=== PATIENT | female | born 2000 | race Caucasian/White ===

== ENCOUNTER 2019-02-13 14:12 | Emergency (ER) | payer SELFPAY ==
[2019-02-13] MEDS ORDERED: ONDANSETRON 4 MG TAB.RAPDIS PO ONE (16:22)
[2019-02-13] MEDS ORDERED: IBUPROFEN 800 MG TABLET PO ONE (16:22)
--- NOTE | 2019-02-13 16:24 | ER Document Report ---
ED Medical Screen (RME) - General Chief Complaint: Abdominal Pain Stated Complaint: ABDOMINAL PAIN Time Seen by Provider: 02/13/19 16:09 Mode of Arrival: Ambulatory Information source: Patient Notes: Patient states that she started her menstrual cycle today and developed abdominal pain. Patient states that she has had a low abdominal pain, low back pain and nausea. Patient states she is also felt faint today. Patient denies any concerns about or STD. On physical exam patient is tender to pelvic area as well as epigastric area. I have greeted and performed a rapid initial assessment of this patient. A comprehensive ED assessment and evaluation of the patient, analysis of test results and completion of the medical decision making process will be conducted by additional ED providers. TRAVEL OUTSIDE OF THE [place] IN LAST 30 DAYS: No - Related Data Allergies/Adverse Reactions: No Known Allergies Allergy (Unverified 02/13/19 14:14) Physical Exam - Vital signs Vitals: Temp Pulse Resp BP Pulse Ox 98.7 F 69 18 120/64 98 02/13/19 14:16 02/13/19 14:16 02/13/19 14:16 02/13/19 14:16 02/13/19 14:16 - Abdominal Tenderness: Tender - epigastric, lower pelvic Course - Vital Signs Vital signs: Temp Pulse Resp BP Pulse Ox 98.9 F 72 18 113/63 98 02/13/19 15:50 02/13/19 15:50 02/13/19 15:50 02/13/19 15:50 02/13/19 15:50
[2019-02-13] MEDS ORDERED: KETOROLAC TROMETHAMINE 60 MG/2 ML SDV IM ONE (17:08)
[2019-02-13 17:12] LABS: ABSOLUTE BASOPHILS # (AUTO) 0.1 10^3/uL (0.0-0.2); ABSOLUTE EOSINOPHILS # (AUTO) 0.1 10^3/uL (0.0-0.6); ABSOLUTE LYMPHOCYTES (AUTO) 3.2 10^3/uL (0.5-4.7); ABSOLUTE MONOCYTES (AUTO) 0.8 10^3/uL (0.1-1.4); ABSOLUTE NEUT (AUTO) 9.3 10^3/uL (1.7-8.2); BASOPHILS % (AUTO) 0.7 % (0-2); EOSINOPHILS % (AUTO) 0.5 % (0-6); HEMATOCRIT 42.7 % (36.0-47.0); HEMOGLOBIN 14.3 g/dL (12.0-15.5); LYMPHOCYTES % (AUTO) 23.8 % (13-45); MEAN CORPUSCULAR HEMOGLOBIN 31.3 pg (27.0-33.4); MEAN CORPUSCULAR HGB CONC 33.5 g/dL (32.0-36.0); MEAN CORPUSCULAR VOLUME 93 fl (80-97); MONOCYTES % (AUTO) 6.1 % (3-13); PLATELET COUNT 260 10^3/uL (150-450); RED BLOOD COUNT 4.57 10^6/uL (3.72-5.28); RED CELL DISTRIBUTION WIDTH 13.1 % (11.5-14.0); SEGMENTED NEUTROPHILS % (AUTO) 68.9 % (42-78); TOTAL CELLS COUNTED % (AUTO) 100 %; WHITE BLOOD COUNT 13.5 10^3/uL (4.0-10.5)
--- NOTE | 2019-02-13 17:14 | ER Document Report ---
ED General - General Chief Complaint: Abdominal Pain Stated Complaint: ABDOMINAL PAIN Time Seen by Provider: 02/13/19 16:09 Primary Care Provider: [facility] [Provider Group] - Follow up as needed Mode of Arrival: Ambulatory TRAVEL OUTSIDE OF THE [place] IN LAST 30 DAYS: No - HPI Notes: Patient is a 18-year-old female with history of anxiety who presents complaining of beginning her menstrual cycle today and having intense cramping as well as some epigastric discomfort. Patient states that her lower pelvic cramping will radiate to her legs and it caused her to have nausea and vomiting x1. Patient states that when the pain was at maximal intensity she did feel somewhat faint, but did not have any syncopal episodes. Pt states that she normally has this type of pelvic pain with her menstrual cycles, but this one was more intense initially that normal. Patient states that the pain has not gotten to that point that it did earlier today. She is able to eat and drink, but does have a decreased p.o. intake. She is urinating normally and having normal bowel movements. Patient states that she may have a yeast infection, but denies any other discharge or odor. She does not want tested for any further STDs or STIs. She is declining any pelvic exam to be performed. Patient also states no chance of as she has a gf. Denies any headache, fever, neck pain, URI, sore throat, chest pain, palpitations, syncope, cough, shortness of breath, wheeze, dyspnea, diarrhea, urinary retention, dysuria, hematuria, or rash. - Related Data Allergies/Adverse Reactions: No Known Allergies Allergy (Unverified 02/13/19 14:14) Past Medical History - General Information source: Patient - Social History Smoking Status: Current Every Day Smoker Frequency of alcohol use: None Drug Abuse: None Family History: Reviewed & Not Pertinent Patient has suicidal ideation: No Patient has homicidal ideation: No Review of Systems - Review of Systems -: Yes All other systems reviewed and negative Physical Exam - Vital signs Vitals: Temp Pulse Resp BP Pulse Ox 98.7 F 69 18 120/64 98 02/13/19 14:16 02/13/19 14:16 02/13/19 14:16 02/13/19 14:16 02/13/19 14:16 - Notes Notes: PHYSICAL EXAMINATION: GENERAL: Well-appearing, well-nourished and in no acute distress. HEAD: Atraumatic, normocephalic. EYES: Pupils equal round and reactive to light, extraocular movements intact, sclera anicteric, conjunctiva are normal. ENT: Nares patent and without discharge. oropharynx clear without exudates. No tonsilar hypertrophy or erythema. Moist mucous membranes. NECK: Normal range of motion, supple without lymphadenopathy LUNGS: Breath sounds clear to auscultation bilaterally and equal. No wheezes rales or rhonchi. HEART: Regular rate and rhythm without murmurs, rubs, gallops. ABDOMEN: Soft, nondistended abdomen. No guarding, no rebound. Normal bowel sounds present. No CVA tenderness bilaterally. + mild central tenderness lower pelvic. No tenderness at [place]. Batista neg. + epigastric tenderness, mild. : declined Musculoskeletal: FROM to passive/active. Strength 5+/5. Extremities: No cyanosis, clubbing, or edema b/l. Peripheral pulses 2+. Capillary refill less than 3 seconds. NEUROLOGICAL: Normal speech, normal gait. Normal sensory, motor exams PSYCH: Normal mood, normal affect. SKIN: Warm, Dry, normal turgor, no rashes or lesions noted. Course - Re-evaluation Re-evalutation: 02/13/19 Patient is an afebrile, well-hydrated, 18-year-old female who presents with epigastric abdominal pain, suspect GERD versus gastritis, lower pelvic pain consistent with her menstrual cycles, otherwise unspecified. There is no tenderness at [place]. Batista negative. No bilateral pelvic tenderness. Vitals are acceptable without significant tachycardia, tachypnea, or hypoxia. PE is otherwise unremarkable. Patient is nontoxic-appearing is tolerating p.o. without difficulty. Labs are unremarkable aside from yeast infection. Patient declined pelvic exam. Diflucan given p.o. today. No further work-up warranted. GI cocktail along with other meds given today have resolved her symptoms and she is 'ready to go home.' Low suspicion/risk for acute appendicitis, bowel obstruction, acute cholecystitis, acute cholangitis, perforated diverticulitis, incarcerated hernia, pancreatitis, perforated ulcer, peritonitis, sepsis, pelvic inflammatory disease, ectopic , tubo-ovarian abscess, ovarian torsion, or other systemic emergent condition at this time. Patient is aware that her condition can change from initial presentation and she needs to monitor symptoms closely and seek medical attention if any acute changes. Conservative measures otherwise for symptoms. Recheck with your PCM/RECREATION THERAPY DIRECTOR in 2 to 3 days. Consider consult with a seed cleaner. Return to the ED with any worsening/concerning symptoms otherwise as reviewed in discharge. Patient is in agreement. - Vital Signs Vital signs: Temp Pulse Resp BP Pulse Ox 98.9 F 72 18 113/63 98 02/13/19 15:50 02/13/19 15:50 02/13/19 15:50 02/13/19 15:50 02/13/19 15:50 - Laboratory Result Diagrams: 02/13/19 17:00 02/13/19 17:00 Laboratory results interpreted by me: 02/13/19 02/13/19 17:00 17:55 WBC 13.5 H Absolute Neuts (auto) 9.3 H Urine Ketones 20 H Urine Blood SMALL H Ur Leukocyte Esterase TRACE H Discharge - Discharge Clinical Impression: Epigastric pain, Menstrual cramps Condition: Stable Disposition: HOME, SELF-CARE Instructions: Abdominal Pain ([facility]) Additional Instructions: Maintain adequate fluid and food intake [place] diet ([employer] Bananas, rice, apples, toast, etc tylenol/motrin if needed Monitor for any worsening symptoms Make sure you are staying hydrated enough to urinate and have normal BM's Recheck with your PCM/OBGYN in 2-3 days Consider consult with Gastroenterology for ongoing/worsening symptoms Return to the ED with any worsening symptoms and/or development of fever, headache, chest pain, palpitations, syncope, shortness of breath, trouble breathing, abdominal pain, n/v/d, blood in stool/urine, weakness, or other wor sening symptoms that are concerning to you. Prescriptions: Sucralfate [Carafate] 1 gm PO BID #100 ml Omeprazole 20 mg PO DAILY #30 tablet. Forms: Smoking Cessation Education Referrals: [facility] [Provider Group] - Follow up as needed
[2019-02-13 17:33] LABS: BACTERIA (WET MOUNT) 3+ BACTERIA SEEN; RBCS (WET MOUNT) 1+ RBCS SEEN; T.VAGINALIS (WET MOUNT) NO TRICHOMONAS SEEN; WBCS (WET MOUNT) 2+ WBCS SEEN; YEAST (WET MOUNT) YEAST SEEN
[2019-02-13 17:40] LABS: ALBUMIN 4.5 g/dL (3.5-5.0); ALKALINE PHOSPHATASE 75 U/L (38-126); ANION GAP 11 (5-19); ASPARTATE AMINO TRANSFERASE 23 U/L (14-36); BILIRUBIN,DIRECT 0.1 mg/dL (0.0-0.4); BILIRUBIN,TOTAL 0.8 mg/dL (0.2-1.3); BLOOD UREA NITROGEN 10 mg/dL (7-20); CALCIUM 9.7 mg/dL (8.4-10.2); CARBON DIOXIDE 25 mmol/L (22-30); CHLORIDE 105 mmol/L (98-107); GLUCOSE 80 mg/dL (75-110); POTASSIUM 3.9 mmol/L (3.6-5.0); TOTAL PROTEIN 7.3 g/dL (6.3-8.2)
[2019-02-13] MEDS ORDERED: FLUCONAZOLE 100 MG TABLET PO ONE (17:47)
[2019-02-13 18:30] LABS: APPEARANCE,URINE CLEAR; BILIRUBIN,URINE NEGATIVE (NEGATIVE); COLOR,URINE YELLOW; GLUCOSE, URINE NEGATIVE (NEGATIVE); KETONES,URINE 20 mg/dL (NEGATIVE); LEUKOCYTE ESTERASE,URINE TRACE (NEGATIVE); NITRITE,URINE NEGATIVE (NEGATIVE); PROTEIN,URINE NEGATIVE (NEGATIVE); URINE SPECIFIC GRAVITY 1.028; UROBILINOGEN,URINE NEGATIVE mg/dL (<2.0)
[2019-02-13] MEDS ORDERED: LIDOCAINE 2% VISCOUS SOLN 20 ML UDCUP PO ONE (18:44)
[2019-02-13] MEDS ORDERED: MAG HYDROX/AL HYDROX/SIMETH SUSP 30 ML UDCUP PO ONE (18:44)
[2019-02-13] MEDS ORDERED: METOCLOPRAMIDE HCL ORAL SOLN 10 MG/10 ML UDCUP PO ONE (18:44)
[2019-02-13 19:46] VITALS: BP 109/64
--- NOTE | 2019-02-13 22:20 | EKG REPORT ---
SEVERITY:- NORMAL ECG - SINUS RHYTHM : Confirmed by: Shari Nunez MD 13-Feb-2019 22:19:02
== END 2019-02-13 19:46 | disposition home or self-care (01) ==
LOC: ER 14:12
DX: R10.13 Epigastric pain (principal); R10.2 Pelvic and perineal pain; R25.2 Cramp and spasm; M79.604 Pain in right leg; M79.605 Pain in left leg; R11.2 Nausea with vomiting, unspecified; F17.200 Nicotine dependence, unspecified, uncomplicated
CPT/HCPCS: 93005; 99284; 96372; 36415; 87210; 83690; 84703; 85025; 80053; 81001; 93010; J1885; S0119; J3490

== ENCOUNTER 2019-10-04 04:30 | Emergency (ER) | payer SELFPAY ==
[2019-10-04 04:34] VITALS: BP 132/82
[2019-10-04] MEDS ORDERED: ACETAMINOPHEN 325 MG TABLET PO ONE (05:56)
--- NOTE | 2019-10-04 05:56 | ER Document Report ---
ED Skin Rash/Insect Bite/Abscs - General Chief Complaint: Insect Bite Stated Complaint: SPIDER BITE Time Seen by Provider: 10/04/19 05:22 Mode of Arrival: Ambulatory Information source: Patient Notes: 19-year-old female with no previous medical problems presents to the emergency room with a spider bite to her left shoulder. Patient states she was sleeping when she was bitten on her shoulder around 3:30 in the morning. No medications for symptoms. No fevers. Complains of pain but denies itching. Unknown last tetanus shot. Denies . TRAVEL OUTSIDE OF THE [place] IN LAST 30 DAYS: No - HPI Patient complains to provider of: Insect bite - Related Data Allergies/Adverse Reactions: No Known Allergies Allergy (Unverified 02/13/19 14:14) Past Medical History - General Information source: Patient - Social History Smoking Status: Current Every Day Smoker Frequency of alcohol use: Occasional Drug Abuse: None Lives with: Family Family History: Reviewed & Not Pertinent Patient has homicidal ideation: No - Immunizations Hx Diphtheria, Pertussis, Tetanus Vaccination: No Review of Systems - Review of Systems Constitutional: No symptoms reported EENT: No symptoms reported Cardiovascular: No symptoms reported Respiratory: No symptoms reported Gastrointestinal: No symptoms reported Skin: Other - Insect bite Hematologic/Lymphatic: No symptoms reported Neurological/Psychological: No symptoms reported -: Yes All other systems reviewed and negative Physical Exam - Vital signs Vitals: Temp Pulse Resp BP Pulse Ox 98.6 F 92 16 132/82 H 100 10/04/19 04:33 10/04/19 04:33 10/04/19 04:33 10/04/19 04:33 10/04/19 04:33 - General General appearance: Appears well, Alert In distress: Mild - HEENT Head: Normocephalic, Atraumatic Eyes: Normal Pupils: PERRL - Respiratory Respiratory status: No respiratory distress Chest status: Nontender Breath sounds: Normal Chest palpation: Normal - Cardiovascular Rhythm: Regular Heart sounds: Normal auscultation Murmur: No - Extremities General upper extremity: Normal inspection, Nontender, Normal color, Normal ROM, Normal temperature General lower extremity: Normal inspection, Nontender, Normal color, Normal ROM, Normal temperature, Normal weight bearing. No: Nancy's sign - Neurological Neuro grossly intact: Yes Cognition: Normal Orientation: AAOx4 [place] Coma Scale Eye Opening: Spontaneous [place] Coma Scale Verbal: Oriented [place] Coma Scale Motor: Obeys Commands [place] Coma Scale Total: 15 Speech: Normal Motor strength normal: LUE, RUE, LLE, RLE Sensory: Normal - Skin Skin Temperature: Warm Skin Moisture: Dry Skin Color: Normal Skin irregularity: other - Left posterior shoulder with a 1/2 cm area of erythema, tender to palpation. Not warm to touch. No discharge or draining noted. Character of irregularity: Erythematous Irregularity with: Tenderness. negative: Warmth, Lymphangitis Course - Re-evaluation Re-evalutation: 10/04/19 06:10 Counseled patient to take Tylenol and or Motrin as needed for pain. Tetanus was updated. She is afebrile, nontoxic-appearing, given strict return to the emergency room guidelines. Return for any new or worsening symptoms. Outpatien t follow-up with primary care physician if not improving in 2 to 3 days. All questions were answered. Patient verbalized understanding and agrees with plan of care. - Vital Signs Vital signs: Temp Pulse Resp BP Pulse Ox 98.6 F 92 16 132/82 H 100 10/04/19 04:53 10/04/19 04:33 10/04/19 04:33 10/04/19 04:33 10/04/19 04:33 Discharge - Discharge Clinical Impression: Insect bite of left shoulder Qualifiers: Encounter type: initial encounter Qualified Code(s): S40.262A - Insect bite (nonvenomous) of left shoulder, initial encounter Condition: Stable Disposition: HOME, SELF-CARE Instructions: Insect Bites ([facility]) Additional Instructions: Take Tylenol and/or Motrin as needed for pain. Recheck with a primary care physician if not improving in 2 to 3 days. Return for any new or worsening symptoms.
[2019-10-04] MEDS ORDERED: DIPH/PERTUSS(ACELL)/TETANUS VAC/PF 0.5 ML SYR (>=10YO) IM ONE (06:02)
== END 2019-10-04 06:21 | disposition home or self-care (01) ==
LOC: ER 04:30
DX: S40.262A Insect bite (nonvenomous) of left shoulder, initial encounter (principal); W57.XXXA Bitten or stung by nonvenomous insect and other nonvenomous arthropods, initial encounter; Y93.84 Activity, sleeping; F17.200 Nicotine dependence, unspecified, uncomplicated; Z23 Encounter for immunization
CPT/HCPCS: 90471; 90715; 99281